=== PATIENT | female | born 1955 | race Caucasian/White ===

== ENCOUNTER 2017-10-29 23:32 | Emergency (ER) | payer SELFPAY ==
[2017-10-30] MEDS ORDERED: Sodium Chloride 0.9% 1,000 ML IV STA (00:30)
[2017-10-30] MEDS ORDERED: Sodium Chloride 0.9% 1,000 ML IV SCH (00:30)
== END 2017-10-30 00:35 | disposition left against medical advice (07) ==
LOC: ED 23:32
DX: Z02.89 Encounter for other administrative examinations (principal); R10.9 Unspecified abdominal pain

== ENCOUNTER 2018-12-02 15:04 | Outpatient (CLI) | payer OTHER | END 2018-12-02 15:05 | disposition home or self-care (01) | LOC: RAD 15:04 | DX: Z12.31 Encounter for screening mammogram for malignant neoplasm of breast (principal) ==